=== PATIENT | male | born 1995 | race Caucasian/White ===

== ENCOUNTER 2022-12-14 09:24 | Emergency (ER) | payer OTHER ==
[~2022-12-14] VITALS: Ht 185.4 cm; Wt 92.0 kg
[2022-12-14 09:36] VITALS: O2SAT 99
[2022-12-14] MEDS ORDERED: DOXY100T2 MT (10:03)
[2022-12-14 10:11] VITALS: BP 132/75; PULSE 98; RESP 20; TEMP 98.3
== END 2022-12-14 10:19 | disposition home or self-care (01) ==
LOC: ER 09:24
DX: R21 Rash and other nonspecific skin eruption (principal); Z88.0 Allergy status to penicillin; Z98.890 Other specified postprocedural states
CPT/HCPCS: 99283